=== PATIENT | male | born 1955 | race Caucasian/White ===

== ENCOUNTER 2016-06-29 22:35 | Emergency (ER) | payer OTHER ==
[~2016-06-29] VITALS: Ht 172.7 cm; Wt 80.0 kg
[~2016-06-29 22:35] MED LIST: PANT40TA3 PO; PRAV20TA63 PO
[2016-06-29 23:16] VITALS: Ht 172.7 cm; Wt 80.0 kg
--- NOTE | 2016-06-30 01:26 | ERA ---
ER Documentation Chief Complaint Date/Time DATE: 06/30/16 TIME: 01:26 Chief Complaint HEMATURIA WITH FLANK PAIN ONSET TODAY HPI The patient is a 60-year-old male, presenting to the ER because of painful urination, frequent urination and bloody urine today. He denies similar symptoms previously, denies fever, chills, neck pain, chest pain, dyspnea. He complains of vague diffuse abdominal pain, denies nausea, vomiting, diarrhea, constipation. He used to smoke but quit many years ago, denies drinking Past medical history: Dyslipidemia, Hernandez's esophagus, gastritis Past surgical history: None ROS All systems reviewed and are negative except as per history of present illness. Medications Home Meds Active Scripts Phenazopyridine Hcl* (Pyridium*) 200 Mg Tab, 200 MG PO TID Y for URINARY PAIN, # 6 TAB Prov:AMY ALFRED MD 06/30/16 Ciprofloxacin Hcl* (Ciprofloxacin Hcl*) 500 Mg Tablet, 500 MG PO BID, #20 TAB Prov:AMY ALFRED MD 06/30/16 Reported Medications Pravastatin Sodium* (Pravastatin Sodium*) 20 Mg Tablet, 20 MG PO HS, TAB 05/26/16 Pantoprazole* (Protonix*) 40 Mg Tablet.dr, 40 MG PO DAILY, TAB 10/03/15 Allergies Allergies: Coded Allergies: No Known Allergy (Unverified , 10/03/15) PMhx/Soc History of Surgery: No Anesthesia Reaction: No Hx Neurological Disorder: No Hx Respiratory Disorders: No Hx Cardiac Disorders: No Hx Psychiatric Problems: No Hx Miscellaneous Medical Probl: No Hx Alcohol Use: No Hx Substance Use: No Hx Tobacco Use: Yes (4 YRS AGO) Physical Exam Vitals Vital Signs Date Time Temp Pulse Resp B/P Pulse Ox O2 Delivery O2 Flow Rate FiO2 06/30/16 02:09 89 18 133/54 99 06/29/16 23:16 98.6 96 20 136/84 98 Physical Exam Const: No acute distress. Head: Atraumatic. Eyes: Normal Conjunctiva. ENT: Normal External Ears, Nose and Mouth. Neck: Full range of motion. No meningismus. Resp: Clear to auscultation bilaterally. Cardio: Regular rate and rhythm, no murmurs. Abd: Soft, non distended, normal bowel sounds, vague and diffuse abdominal discomfort, no rigidity, rebound, CVA tenderness Skin: No petechiae or rashes. Back: No midline or flank tenderness. Ext: No cyanosis, or edema. Neur: Awake and alert. No focal deficit Psych: Normal Mood and Affect. Result Diagram: 06/30/16 02006/30/16 0200 Results 24 hrs Laboratory Tests Test 06/30/16 01:46 06/30/16 02:00 Bedside Urine Blood 3+ Bedside Urine Glucose (UA) Negative Bedside Urine Ketones (LAB) Negative Bedside Urine Leukocyte Esterase (L 3+ Bedside Urine Nitrite (LAB) Negative Bedside Urine Protein (LAB) 1+ Bedside Urine pH (LAB) 6.0 Activated Partial Thromboplast Time 33.0Sec Alanine Aminotransferase (ALT/SGPT) 22IU/L Albumin 4.3g/dl Albumin/Globulin Ratio 1.48 Alkaline Phosphatase 50IU/L Anion Gap 17 Aspartate Amino Transf (AST/SGOT) 22IU/L Basophils # 0.010^3/ul Basophils % 0.4% Blood Morphology Comment Blood Urea Nitrogen 14mg/dl Calcium Level 9.1mg/dl Carbon Dioxide Level 29mmol/L Chloride Level 101mmol/L Creatinine 0.88mg/dl Direct Bilirubin 0.00mg/dl Eosinophils # 0.210^3/ul Eosinophils % 1.8% Globulin 2.90g/dl Glucose Level 89mg/dl Hematocrit 43.2% Hemoglobin 14.1g/dl INR International Normalized Ratio 1.00 Indirect Bilirubin 0.4mg/dl Lipase 29U/L Lymphocytes # 1.810^3/ul Lymphocytes % 18.6% Mean Corpuscular Hemoglobin 22.3pg Mean Corpuscular Hemoglobin Concent 32.6g/dl Mean Corpuscular Volume 68.4fl Mean Platelet Volume 8.0fl Monocytes # 0.610^3/ul Monocytes % 6.6% Neutrophils # 6.910^3/ul Neutrophils % 72.6% Nucleated Red Blood Cells # 0.010^3/ul Nucleated Red Blood Cells % 0.0/100WBC Platelet Count 91218^3/UL Potassium Level 4.5mmol/L Prothrombin Time 13.2Sec Prothrombin Time Ratio 1.0 Red Blood Count 6.3210^6/ul Red Cell Distribution Width 14.8% Sodium Level 142mmol/L Total Bilirubin 0.4mg/dl Total Protein 7.2g/dl White Blood Count 9.510^3/ul Current Medications Medications (Trade) Dose Ordered Sig/Fannie Route PRN Reason Start Time Stop Time Status Last Admin Dose Admin Ciprofloxacin (Cipro) 500 mg ONCE ONCE PO 06/30/16 03:00 06/30/16 03:00 DC 06/30/16 02:55 Phenazopyridine HCl (Pyridium) 200 mg ONCE ONCE PO 06/30/16 03:00 06/30/16 03:00 DC 06/30/16 02:55 Procedures/[place] [address] Radiology Main Line: [phone] DIAGNOSTIC IMAGING REPORT Patient: ABUNDIO DIAMOND : 1955 Age: 60 Sex: M MR #: [id number] DOS: 06/30/16 0128 Ordering MD: AMY ALFRED MD Location: E/R Room/Bed: PROCEDURE: CT ABDOMEN/PELVIS WITHOUT CONTRAST CLINICAL INDICATION: 60-year-old male with abdominal pain. TECHNIQUE: The study was performed utilizing a [employer] VCT 64-slice CT scanner. Direct axial sections were obtained through the abdomen and pelvis without the use of intravenous contrast material. Sagittal and coronal reformations were obtained. Automated exposure control and iterative reconstruction techniques were utilized for this examination. The images were reviewed on a PACS workstation. CTD/vol = 8.6 mGy; Total Exam DLP = 552.4 mGy- cm. COMPARISON: None. FINDINGS: Focal calcifications are seen within the proximal left anterior descending coronary artery. There is minimal bibasilar subsegmental atelectasis. There is no evidence for significant pleural effusion. The liver has a normal size and contour without focal areas of abnormal density. No intrahepatic nor extrahepatic biliary ductal dilatation is seen. The gallbladder demonstrates no wall thickening nor pericholecystic fluid. No biliary stones are evident. The pancreas is without areas of abnormal attenuation. The spleen is identified and has a normal size without abnormal density. The adrenal glands are unremarkable. The kidneys are without abnormal density. No hydroureteronephrosis nor nephroureterolithiasis is evident. The urinary bladder contains urine. There is mild retained stool within the ascending and transverse colon without obstruction. The appendix is diminutive and is without abnormal thickening or surrounding inflammatory reaction. There is no significant free fluid. Shotty mesenteric lymph nodes are seen. The aortoiliac vessels are mildly calcified but without aneurysmal dilatation. The osseous structures are intact. IMPRESSION: 1. No CT evidence for obstructive uropathy or renal calculi. 2. Mild retained stool without obstruction. 3. No CT evidence for appendicitis. 4. Vascular calcifications. .Abiel Lamb MD, MD Date Time Electronically viewed and signed by .Abiel Lamb MD, MD on 06/30/2016 02:37 .M/ CC: AMY ALFRED MD MEDICAL MAKING DECISION: The patient is a 60-year-old male, presenting with acute cystitis. The differential diagnoses considered include but are not limited to cholelithiasis, cholecystitis, cystitis, pancreatitis, hepatitis, gastritis, peptic ulcer disease, gastric ulcer, appendicitis, diverticulitis, cholangitis, choledocholithiasis, partial small bowel obstruction. Departure Diagnosis: Primary Impression: UTI (urinary tract infection) Condition: Good Comments He was discharged with Cipro and Pyridium. He was given first dose of Cipro and Pyridium in the ER I discussed the findings with the patient. I advised the patient to follow-up with the primary physician in about 1-2 days, sooner if needed and return if any concern. The patient's blood pressure was elevated (>120/80) but appears stable without evidence of hypertension emergency or urgency. The patient was counseled about the risks of hypertension and urged to pursue outpatient monitoring and therapy within a week with their primary care physician. AMY ALFRED MD Jun 30, 2016 01:26
[2016-06-30 01:47] LABS: URINE BLOOD (Dip) POC 3+ (NEGATIVE)
[2016-06-30 02:09] VITALS: BP 133/54; PULSE 89; RESP 18
[2016-06-30 02:29] LABS: BASOPHILS % 0.4 % (0.0-2.0); EOSINOPHILS # 0.2 10^3/ul (0.0-0.5); EOSINOPHILS % 1.8 % (0.0-7.0); HEMATOCRIT 43.2 % (42.0-52.0); HEMOGLOBIN 14.1 g/dl (14.0-18.0); LYMPHOCYTES # 1.8 10^3/ul (0.8-2.9); LYMPHOCYTES % 18.6 % (15.0-51.0); MEAN CORPUSCULAR HEMOGLOBIN 22.3 pg (29.0-33.0); MEAN CORPUSCULAR HGB CONC 32.6 g/dl (32.0-37.0); MEAN CORPUSCULAR VOLUME 68.4 fl (82.0-101.0); MONOCYTE # 0.6 10^3/ul (0.3-0.9); MONOCYTES % 6.6 % (0.0-11.0); NEUTROPHIL # 6.9 10^3/ul (1.6-7.5); NEUTROPHILS % 72.6 % (39.0-77.0); PLATELET COUNT 194 10^3/UL (140-440); RED BLOOD COUNT 6.32 10^6/ul (4.70-6.10); RED CELL DISTRIBUTION WIDTH 14.8 % (11.5-14.5); UNCORRECTED WBC 9.5 10^3/ul (4.8-10.8); WHITE BLOOD COUNT 9.5 10^3/ul (4.8-10.8)
[2016-06-30 02:31] LABS: PROTIME 13.2 Sec (12.2-14.2)
[2016-06-30 02:32] LABS: CONDITION 1; LH ANALYZER COMMENTS 1
[2016-06-30 02:36] LABS: ALBUMIN 4.3 g/dl (3.3-4.9); POTASSIUM 4.5 mmol/L (3.5-5.1)
--- NOTE | 2016-06-30 02:37 | RADRPT ---
PROCEDURE: CT ABDOMEN/PELVIS WITHOUT CONTRAST CLINICAL INDICATION: 60-year-old male with abdominal pain. TECHNIQUE: The study was performed utilizing a [employer] VCT 64-slice CT scanner. Direct axia l sections were obtained through the abdomen and pelvis without the use of intravenous contrast mate rial. Sagittal and coronal reformations were obtained. Automated exposure control and iterative princess nstruction techniques were utilized for this examination. [facility] CTD/vol = 8.6 mGy; Total Exam DLP = 552.4 mGy-cm. COMPARISON: None. FINDINGS: Focal calcifications are seen within the proximal left anterior descending coronary artery. There i s minimal bibasilar subsegmental atelectasis. There is no evidence for significant pleural effusion . The liver has a normal size and contour without focal areas of abnormal density. No intrahepatic nor extrahepatic biliary ductal dilatation is seen. The gallbladder demonstrates no wall thickening nor pericholecystic fluid. No biliary stones are evident. The pancreas is without areas of abnormal attenuation. The spleen is identified and has a normal size without abnormal density. The adrenal g lands are unremarkable. The kidneys are without abnormal density. No hydroureteronephrosis nor nephr oureterolithiasis is evident. The urinary bladder contains urine. There is mild retained stool withi n the ascending and transverse colon without obstruction. The appendix is diminutive and is without abnormal thickening or surrounding inflammatory reaction. There is no significant free fluid. Shotty mesenteric lymph nodes are seen. The aortoiliac vessels are mildly calcified but without ane urysmal dilatation. The osseous structures are intact. IMPRESSION: 1. No CT evidence for obstructive uropathy or renal calculi. 2. Mild retained stool without obstruction. 3. No CT evidence for appendicitis. 4. Vascular calcifications. .Abiel Lamb MD, MD Date Time Electronically viewed and signed by .Abiel Lamb MD, MD on 06/30/2016 02:37 .Vahe/
[2016-06-30 02:38] LABS: CREATININE 0.88 mg/dl (0.61-1.24)
[2016-06-30 02:39] LABS: ALBUMIN/GLOBULIN RATIO 1.48; BILIRUBIN,INDIRECT 0.4 mg/dl (0-1.1); BILIRUBIN,TOTAL 0.4 mg/dl (0.2-1.3); CALCIUM 9.1 mg/dl (8.4-10.2); TOTAL PROTEIN 7.2 g/dl (6.1-8.1)
[2016-06-30] MEDS ORDERED: CIPR500T4 PO (02:48)
[2016-06-30] MEDS ORDERED: PHEN-538 PO (02:49)
[2016-06-30] MEDS ORDERED: PHENAZOPYRIDINE 100 MG TAB PO ONE (03:00)
[2016-06-30] MEDS ORDERED: CIPROFLOXACIN 500 MG TAB PO ONE (03:00)
== END 2016-06-30 02:59 | disposition home or self-care (01) ==
LOC: E/R 22:35
DX: N39.0 Urinary tract infection, site not specified (principal); R10.9 Unspecified abdominal pain; Z72.0 Tobacco use
CPT/HCPCS: 36415; 74176; 80053; 81003; 83690; 85025; 85610; 85730; Z7502; Z7610

== ENCOUNTER 2017-06-24 11:24 | Emergency (ER) | END 2017-06-24 14:49 | disposition home or self-care (01) ==